=== PATIENT | female | born 1950 | race Caucasian/White ===

== ENCOUNTER 2021-03-18 20:49 | Inpatient (IN) ==
[2021-03-18] MEDS ORDERED: 0.9 % Sodium Chloride 1,000 ML IVC ONE (21:05)
[2021-03-18 21:30] LABS: Basophils % 0.1 %; Eosinophils # 0.2 K/mcL (0.0-0.6); Hematocrit 43.6 % (35.3-44.9); Hemoglobin 14.5 g/dL (11.5-15.4); Immature Granulocytes % 0.6 % (0-4); Lymphocytes # 1.5 K/mcL (0.6-4.6); Mean Corpuscular HGB Conc 33.3 g/dL (31.6-35.5); Mean Corpuscular Hemoglobin 31.1 pg (28.0-33.3); Mean Corpuscular Volume 93.6 fL (83.0-100.0); Mean Platelet Volume 9.5 fL (9.4-12.4); Monocytes # 0.8 K/mcL (0.0-1.3); Monocytes % 11.4 %; Neutrophils # 4.2 K/mcL (1.6-8.9); Platelet Count 159 K/mcL (140-400); Red Blood Count 4.66 M/mcL (3.82-4.97); Red Cell Distribution Width 11.9 % (11.5-14.5); Segmented Neutrophils % 62.9 %; White Blood Count 6.7 K/mcL (4.3-11.1)
[2021-03-18 21:44] LABS: ABG Base Excess 6 mEq/L (-2 to 3); ABG HCO3 30 mEq/L (21-27); ABG Oxygen Saturation 93 % (95-98); ABG PCO2 38 mmHg (35-45); ABG PO2 60 mmHg (85-104); ABG TCO2 31 mEq/L (20-26)
[2021-03-18 21:50] LABS: BUN/Creatinine Ratio 23 (6-26); Blood Urea Nitrogen 39 mg/dL (8-23); Calcium 9.2 mg/dL (8.6-10.3); Carbon Dioxide 30 mEq/L (23-29); Chloride 99 mEq/L (98-107); Glucose 139 mg/dL (70-105); Osmolality,Calculated 300 (280-300); Potassium 3.8 mEq/L (3.5-5.1); Sodium 139 mEq/L (136-145); eGFR For African Americans 36 (> 60); eGFR For Non-African Americans 30 (> 60)
[2021-03-18 21:52] LABS: Troponin I < 0.03 ng/mL (< 0.04)
[2021-03-18] MEDS ORDERED: *HR* Heparin 5,000 UNIT/ML VIAL IVP PRN ×2 (22:17)
[2021-03-18] MEDS ORDERED: *HR* Heparin 5,000 UNIT/ML VIAL IVP ONE (22:17)
[2021-03-18 22:20] LABS: Influenza A PCR Negative (Negative); Influenza B PCR Negative (Negative); Resp. Syncytial Virus PCR Negative (Negative)
[2021-03-18 22:24] LABS: SARS-CoV-2 by PCR (In House) Negative (Negative)
[2021-03-18] MEDS ORDERED: Heparin 25,000UNIT/250ML 1/2NS 25,000 UNIT/250 ML IV.SOLN IVC SCH (22:30)
[2021-03-18 22:32] LABS: Hematocrit 38.3 % (35.3-44.9); Mean Corpuscular HGB Conc 33.7 g/dL (31.6-35.5); Mean Corpuscular Hemoglobin 31.2 pg (28.0-33.3); Mean Corpuscular Volume 92.7 fL (83.0-100.0); Mean Platelet Volume 9.6 fL (9.4-12.4); Platelet Count 144 K/mcL (140-400); Red Blood Count 4.13 M/mcL (3.82-4.97); Red Cell Distribution Width 11.9 % (11.5-14.5); White Blood Count 6.1 K/mcL (4.3-11.1)
[2021-03-18 22:37] LABS: Hemoglobin 12.9 g/dL (11.5-15.4)
[2021-03-18 22:41] LABS: INR 0.9; Prothrombin Time 10.4 Seconds (9.4-12.1)
[2021-03-18 22:43] LABS: Heparin anti-factor XA UFH < 0.04 IU/mL (0.30-0.70)
[2021-03-18] MEDS ORDERED: Naloxone 0.4 MG/ML INJ IVP PRN (23:18)
[2021-03-19] MEDS ORDERED: 0.9 % Sodium Chloride 1,000 ML IVC ONE (01:19)
[2021-03-19 02:33] LABS: Basophils % 0.4 %; Eosinophils # 0.3 K/mcL (0.0-0.6); Eosinophils % 5.5 %; Hematocrit 39.6 % (35.3-44.9); Hemoglobin 13.1 g/dL (11.5-15.4); Immature Granulocytes % 0.5 % (0-4); Lymphocytes # 1.1 K/mcL (0.6-4.6); Lymphocytes % 20.4 %; Mean Corpuscular HGB Conc 33.1 g/dL (31.6-35.5); Mean Corpuscular Hemoglobin 31.2 pg (28.0-33.3); Mean Corpuscular Volume 94.3 fL (83.0-100.0); Mean Platelet Volume 9.8 fL (9.4-12.4); Monocytes # 0.7 K/mcL (0.0-1.3); Monocytes % 12.2 %; Neutrophils # 3.4 K/mcL (1.6-8.9); Platelet Count 151 K/mcL (140-400); Red Cell Distribution Width 11.9 % (11.5-14.5); White Blood Count 5.6 K/mcL (4.3-11.1)
[2021-03-19 02:53] LABS: Calcium 8.3 mg/dL (8.6-10.3); Phosphorous 4.5 mg/dL (2.7-4.5); Potassium 3.7 mEq/L (3.5-5.1)
[2021-03-19 03:14] LABS: Thyroid Stimulating Hormone 2.433 mcIU/mL (0.340-5.600)
[2021-03-19] MEDS ORDERED: Ringers Solution, Lactated 1,000 ML IVC SCH (03:30)
[2021-03-19] MEDS ORDERED: Perflutren Lipid Microsphere 1.3 ML in 0.9 % Sodium Chloride 8.7 ML IVP PRN (14:02)
[2021-03-19] MEDS ORDERED: Albuterol 2.5 MG/3 ML NEBULIZER IH PRN (16:06)
[2021-03-19] MEDS ORDERED: NON-FORMULARY MEDICATION 1 EACH EACH (Albuterol Sulfate 8.5 GM Hfa.Aer.Ad) IH PRN (16:06)
[2021-03-19] MEDS: hydrALAZINE 25 MG TABLET PO SCH ×2 (17:14→23:50)
[2021-03-19] MEDS: Triamterene/HCTZ 75/50 mg TABLET PO SCH (18:16)
[2021-03-19] MEDS ORDERED: Acetaminophen 325 MG TABLET PO PRN (21:53)
[2021-03-19] MEDS: *HR* Heparin 5,000 UNIT/ML VIAL SQ SCH (22:14)
[2021-03-20 01:20] LABS: Basophils % 0.3 %; Eosinophils # 0.2 K/mcL (0.0-0.6); Hematocrit 36.8 % (35.3-44.9); Hemoglobin 12.3 g/dL (11.5-15.4); Immature Granulocytes % 0.3 % (0-4); Lymphocytes # 0.8 K/mcL (0.6-4.6); Lymphocytes % 19.8 %; Mean Corpuscular HGB Conc 33.4 g/dL (31.6-35.5); Mean Corpuscular Hemoglobin 31.5 pg (28.0-33.3); Mean Corpuscular Volume 94.1 fL (83.0-100.0); Monocytes # 0.5 K/mcL (0.0-1.3); Monocytes % 12.6 %; Neutrophils # 2.4 K/mcL (1.6-8.9); Platelet Count 128 K/mcL (140-400); Red Blood Count 3.91 M/mcL (3.82-4.97); Red Cell Distribution Width 11.9 % (11.5-14.5)
[2021-03-20 01:36] LABS: Calcium 8.5 mg/dL (8.6-10.3); Potassium 4.1 mEq/L (3.5-5.1)
[2021-03-20] MEDS: *HR* Heparin 5,000 UNIT/ML VIAL SQ SCH ×3 (05:14→22:02)
[2021-03-20] MEDS: hydrALAZINE 25 MG TABLET PO SCH ×3 (06:46→23:13)
[2021-03-20] MEDS: Triamterene/HCTZ 75/50 mg TABLET PO SCH (08:55)
[2021-03-20 11:00] LABS: Bilirubin,Urine Negative (Negative); Blood,Urine Negative (Negative); Clarity,Urine Clear (Clear); Color,Urine Colorless (Yellow); Glucose,Urine (UA) Normal (Normal); Ketones,Urine Negative (Negative); Leukocyte Esterase,Urine Negative (Negative); Nitrite,Urine Negative (Negative); Protein,Urine Negative (Neg-Trace); Urobilinogen,Urine Normal (Normal)
[2021-03-20 11:09] LABS: Protein/Creatinine Ratio,Urine 0.12 mg/mg (0.00-0.20)
[2021-03-20 15:04] LABS: Complement C3 153 mg/dL (87-200)
[2021-03-21 01:53] LABS: Basophils % 0.2 %; Eosinophils # 0.3 K/mcL (0.0-0.6); Hematocrit 38.7 % (35.3-44.9); Hemoglobin 12.5 g/dL (11.5-15.4); Immature Granulocytes % 0.6 % (0-4); Lymphocytes # 0.9 K/mcL (0.6-4.6); Lymphocytes % 18.2 %; Mean Corpuscular HGB Conc 32.3 g/dL (31.6-35.5); Mean Corpuscular Hemoglobin 30.4 pg (28.0-33.3); Mean Corpuscular Volume 94.2 fL (83.0-100.0); Monocytes # 0.7 K/mcL (0.0-1.3); Monocytes % 13.4 %; Neutrophils # 3.1 K/mcL (1.6-8.9); Platelet Count 147 K/mcL (140-400); Red Blood Count 4.11 M/mcL (3.82-4.97); Red Cell Distribution Width 12.1 % (11.5-14.5); Segmented Neutrophils % 61.6 %
[2021-03-21 02:12] LABS: Calcium 9.3 mg/dL (8.6-10.3); Potassium 4.1 mEq/L (3.5-5.1)
[2021-03-21 02:15] LABS: Albumin 3.6 g/dL (3.5-5.7); Magnesium 1.8 mg/dL (1.6-2.6); Phosphorous 4.4 mg/dL (2.7-4.5)
[2021-03-21] MEDS: *HR* Heparin 5,000 UNIT/ML VIAL SQ SCH ×3 (05:32→20:49)
[2021-03-21] MEDS: hydrALAZINE 25 MG TABLET PO SCH ×2 (06:43→14:23)
[2021-03-22] MEDS: hydrALAZINE 25 MG TABLET PO SCH ×3 (00:34→15:51)
[2021-03-22 02:29] LABS: Basophils % 0.3 %; Eosinophils # 0.2 K/mcL (0.0-0.6); Eosinophils % 3.8 %; Hematocrit 38.7 % (35.3-44.9); Hemoglobin 13.1 g/dL (11.5-15.4); Immature Granulocytes % 0.3 % (0-4); Lymphocytes # 1.6 K/mcL (0.6-4.6); Mean Corpuscular HGB Conc 33.9 g/dL (31.6-35.5); Mean Corpuscular Volume 94.4 fL (83.0-100.0); Mean Platelet Volume 10.2 fL (9.4-12.4); Monocytes # 0.7 K/mcL (0.0-1.3); Monocytes % 12.3 %; Neutrophils # 3.2 K/mcL (1.6-8.9); Platelet Count 151 K/mcL (140-400); Red Cell Distribution Width 12.1 % (11.5-14.5); Segmented Neutrophils % 55.3 %; White Blood Count 5.8 K/mcL (4.3-11.1)
[2021-03-22 02:42] LABS: Calcium 9.2 mg/dL (8.6-10.3); Potassium 4.2 mEq/L (3.5-5.1)
[2021-03-22] MEDS: *HR* Heparin 5,000 UNIT/ML VIAL SQ SCH ×2 (06:12→14:40)
[2021-03-23] MEDS: hydrALAZINE 25 MG TABLET PO SCH ×2 (06:56→09:59)
[2021-03-23] MEDS: *HR* Heparin 5,000 UNIT/ML VIAL SQ SCH ×2 (06:58→06:59)
[2021-03-23 10:13] LABS: Calcium 9.4 mg/dL (8.6-10.3); Potassium 3.8 mEq/L (3.5-5.1)
[2021-03-23 11:14] VITALS: BP 135/78; PULSE 100; TEMP 98.6; O2SAT 94
[2021-03-24 10:46] LABS: ANA IgG by ELISA NONE DETECTED (None Detected)
[2021-03-24 17:20] LABS: Urine Collection Volume NOT PROVIDED mL
[2021-03-25 14:49] LABS: Metanephrine, Plasma 0.32 nmol/L (0.00-0.49)
[2021-03-26 19:01] LABS: ANCA IFA Titer <1:20 (<1:20)
[2021-03-27 06:56] LABS: ANCA IFA Pattern NONE DETECTED (None Detected); Serine Protease-3 Antibody 1 AU/mL (0-19)
== END 2021-03-23 13:57 | disposition home or self-care (01) | DRG 684 ==
LOC: 3ANU 20:49 → EMEROOARM 20:49 → SUATTDRO 23:30 → 3ANU 23:50
PROVIDERS: ADMIT Family Medicine; ATTEND Hospitalist

== ENCOUNTER 2022-01-12 14:59 | Observation (INO) ==
[2022-01-12] MEDS ORDERED: Iopamidol - 370 500 ML MLS IVP ONE (16:18)
[2022-01-12] MEDS ORDERED: 0.9 % Sodium Chloride 1,000 ML IVC ONE (16:20)
[2022-01-12 16:44] LABS: Basophils % 0.1 %; Hematocrit 37.3 % (35.3-44.9); Hemoglobin 12.2 g/dL (11.5-15.4); Immature Granulocytes % 1.3 % (0-4); Lymphocytes # 0.6 K/mcL (0.6-4.6); Lymphocytes % 7.4 %; Mean Corpuscular HGB Conc 32.7 g/dL (31.6-35.5); Mean Corpuscular Volume 100.8 fL (83.0-100.0); Mean Platelet Volume 9.2 fL (9.4-12.4); Monocytes # 0.4 K/mcL (0.0-1.3); Monocytes % 4.7 %; Neutrophils # 7.4 K/mcL (1.6-8.9); Nucleated Red Blood Cells 0.2 /100 WBC (0); Platelet Count 260 K/mcL (140-400); Red Cell Distribution Width 13.6 % (11.5-14.5); Segmented Neutrophils % 86.5 %; White Blood Count 8.5 K/mcL (4.3-11.1)
[2022-01-12 17:00] LABS: BUN/Creatinine Ratio 22 (6-26); Blood Urea Nitrogen 24 mg/dL (8-23); Calcium 9.1 mg/dL (8.6-10.3); Carbon Dioxide 26 mEq/L (23-29); Chloride 106 mEq/L (98-107); Glucose 116 mg/dL (70-105); Osmolality,Calculated 289 (280-300); Potassium 4.8 mEq/L (3.5-5.1); Sodium 137 mEq/L (136-145); Troponin I < 0.03 ng/mL (< 0.04)
[2022-01-12] MEDS ORDERED: Pantoprazole 40 MG VIAL IVP ONE ×2 (18:54→22:45)
[2022-01-12] MEDS ORDERED: Ondansetron 4 MG/2 ML VIAL IVP PRN (21:52)
[2022-01-12] MEDS ORDERED: Acetaminophen 325 MG TABLET PO PRN (21:52)
[2022-01-12] MEDS ORDERED: Naloxone 0.4 MG/ML INJ IVP PRN (21:52)
[2022-01-12] MEDS ORDERED: cloNIDine HCL 0.1 MG TABLET PO SCH (22:45)
[2022-01-12 23:57] LABS: Bilirubin,Urine Negative (Negative); Blood,Urine Trace (Negative); Clarity,Urine Clear (Clear); Color,Urine Colorless (Yellow); Glucose,Urine (UA) Normal (Normal); Ketones,Urine Negative (Negative); Leukocyte Esterase,Urine Negative (Negative); Mucus,Urine Few per lpf (None-Few); Nitrite,Urine Negative (Negative); Protein,Urine Negative (Neg-Trace); Specific Gravity,Urine 1.019 (1.010-1.025); Squamous Epithelial Cell,Urine Few per hpf (None-Few); Urobilinogen,Urine Normal (Normal); WBC,Urine 0-3 per hpf (0-3)
[2022-01-13 03:54] LABS: Basophils % 0.2 %; Eosinophils # 0.1 K/mcL (0.0-0.6); Eosinophils % 1.6 %; Hematocrit 32.4 % (35.3-44.9); Hemoglobin 10.4 g/dL (11.5-15.4); Lymphocytes # 1.3 K/mcL (0.6-4.6); Mean Corpuscular HGB Conc 32.1 g/dL (31.6-35.5); Mean Corpuscular Hemoglobin 32.3 pg (28.0-33.3); Mean Corpuscular Volume 100.6 fL (83.0-100.0); Mean Platelet Volume 9.3 fL (9.4-12.4); Monocytes # 0.9 K/mcL (0.0-1.3); Monocytes % 10.7 %; Platelet Count 207 K/mcL (140-400); Red Blood Count 3.22 M/mcL (3.82-4.97); Red Cell Distribution Width 13.4 % (11.5-14.5); Segmented Neutrophils % 71.5 %; White Blood Count 8.4 K/mcL (4.3-11.1)
[2022-01-13 03:59] LABS: INR 1.4; Prothrombin Time 15.7 Seconds (9.4-12.1)
[2022-01-13 04:12] LABS: Albumin 3.5 g/dL (3.5-5.7); Albumin/Globulin Ratio 1.9 (1.1-2.2); Bilirubin,Direct 0.1 mg/dL (0.0-0.2); Bilirubin,Indirect 0.5 mg/dL (0.0-1.0); Bilirubin,Total 0.6 mg/dL (0.3-1.0); Calcium 8.1 mg/dL (8.6-10.3); Globulin 1.8 g/dL (2.4-3.5); Magnesium 2.5 mg/dL (1.6-2.6); Potassium 4.1 mEq/L (3.5-5.1); Total Protein 5.3 g/dL (6.4-8.9)
[2022-01-13] MEDS ORDERED: Pantoprazole 40 MG VIAL IVP SCH (06:00)
[2022-01-13] MEDS ORDERED: predniSONE 20 MG TABLET PO SCH (09:00)
[2022-01-13] MEDS ORDERED: Spironolactone 25 MG TABLET PO SCH (09:00)
[2022-01-13] MEDS ORDERED: Cyanocobalamin (B-12) 1,000 MCG TABLET PO SCH (09:00)
[2022-01-13] MEDS ORDERED: Lidocaine -MPF 2% 5 ML VIAL ONE (09:39)
[2022-01-13] MEDS ORDERED: Simethicone 40 MG/0.6 ML MLS IR ONE (10:04)
[2022-01-13] MEDS ORDERED: Simethicone 40 MG/0.6 ML MLS ONE (10:05)
[2022-01-13 10:49] VITALS: BP 138/77; PULSE 56; TEMP 97.6; O2SAT 98
== END 2022-01-13 14:30 | disposition home or self-care (01) ==
LOC: EMEROOARM 14:59 → 2ANU 14:59 → SUATTDRO 20:48 → 2ANU 21:54
PROVIDERS: ADMIT Student in an Organized Health Care Education/Training Program; ATTEND Family Medicine
PROC: ENDOEBX (2022-01-13 10:00)